=== PATIENT | male | born 1945 | race Caucasian/White ===

== ENCOUNTER 2016-05-29 21:38 | Inpatient (IN) | payer MEDICAID ==
[~2016-05-29] VITALS: Ht 170.2 cm; Wt 84.4 kg
[2016-05-29 22:01] LABS: BASOPHILS % (AUTO) 0.5 % (0.0-2.0); EOSINOPHILS # (AUTO) 0.4 /CMM (0.0-0.7); EOSINOPHILS % (AUTO) 3.9 % (0.0-6.0); HEMATOCRIT 37 % (39-51); HEMOGLOBIN 11.9 g/dL (13.5-17.5); LYMPHOCYTES % (AUTO) 22.3 % (20.0-44.0); MEAN CORPUSCULAR HEMOGLOBIN 27 PG (26.0-33.0); MEAN CORPUSCULAR HGB CONC 32 g/dl (31.0-36.0); MEAN CORPUSCULAR VOLUME 85 fL (80-96); MONOCYTES # (AUTO) 0.5 /CMM (0.1-1.30); MONOCYTES % (AUTO) 5.4 % (2.0-12.0); NEUTROPHILS # (AUTO) 6.1 /CMM (1.8-8.9); NEUTROPHILS % (AUTO) 67.9 % (43.0-81.0); PLATELET COUNT (AUTO) 219 /CMM (150-450); RDW COEFFICIENT OF VARIATION 15.3 (11.5-15.0); RED BLOOD CELL COUNT(AUTO) 4.38 MIL/uL (4.5-6.0)
[2016-05-29 22:19] LABS: ALBUMIN 3.2 g/dL (3.4-5.0); BILIRUBIN,DIRECT 0.1 mg/dL (0.0-0.2); BILIRUBIN,TOTAL 0.4 mg/dL (0.2-1.0); CREATININE 2.5 mg/dL (0.6-1.3); POTASSIUM 4.2 mmol/L (3.5-5.1); TOTAL PROTEIN, SERUM 7.4 g/dL (6.4-8.2)
[2016-05-29 22:22] LABS: TROPONIN I 0.025 ng/mL (0.00-0.056)
[2016-05-29 22:25] LABS: INR 1.02 (0.87-1.13); PROTHROMBIN TIME 10.9 SECS (9.5-12.7)
[2016-05-29] MEDS ORDERED: ALBUTEROL FS 2.5 MG/3 ML VIAL.NEB ONE (22:28)
[2016-05-29] MEDS ORDERED: ALBUTEROL FS 2.5 MG/0.5 ML VIAL.NEB NEB ONE (22:30)
[2016-05-29] MEDS ORDERED: IV NS 0.9% 1,000 ML BAG IV ONE (22:30)
[2016-05-29] MEDS ORDERED: IV NS 0.9% 1,000 ML ONE (22:42)
[2016-05-29] MEDS ORDERED: IV SET PRIMARY 1 EA INFUS.SET MC ONE ×2 (22:42→23:41)
[2016-05-29 23:08] LABS: APPEARANCE,URINE SL CLOUDY (CLEAR); BILIRUBIN,URINE NEGATIVE (NEGATIVE); BLOOD, URINE TRACE-INTA Ery/uL (NEGATIVE); COLOR,URINE YELLOW (YELLOW); KETONES,URINE NEGATIVE (NEGATIVE); LEUKOCYTE ESTERASE ,URINE NEGATIVE (NEGATIVE); NITRITE, URINE NEGATIVE (NEGATIVE); PH,URINE 5.5 (5.0-8.0); PROTEIN,URINE 1+ mg/dl (NEGATIVE); UGLUCOSE 3+ mg/dL (NEGATIVE); UROBILINOGEN,URINE 0.2 EU/dL (0.2)
[2016-05-29 23:23] LABS: ADD URINE CULTURE YES; BACTERIA,URINE 4+ /HPF (None Seen); RBC,URINE 0-5 /HPF (0-2); WBC,URINE 81-100 /HPF (0-3)
[2016-05-29 23:24] LABS: SQUAMOUS EPITHELIAL CELL,UR Moderate /HPF (None Seen)
[2016-05-29] MEDS ORDERED: CEFTRIAXONE 1GM BAG (ER ONLY) 1 GM/50 ML PIGGYBACK IV ONE (23:30)
[2016-05-29] MEDS ORDERED: CEFTRIAXONE 1GM BAG (ER ONLY) 50 ML IV ONE (23:41)
[2016-05-30] VITALS (7 sets, daily range): BP systolic 94–145; BP diastolic 60–78
[2016-05-30] MEDS ORDERED: TAMS-12 PO (00:02)
[2016-05-30] MEDS ORDERED: INSU100V7 SQ (00:02)
[2016-05-30] MEDS ORDERED: ISOS30TA6 PO (00:02)
[2016-05-30] MEDS ORDERED: FINA5TAB11 PO (00:02)
[2016-05-30] MEDS ORDERED: CARV25TA2 PO (00:02)
[2016-05-30] MEDS ORDERED: FURO-144 PO (00:02)
[2016-05-30] MEDS ORDERED: CALC0.253 PO (00:02)
[2016-05-30] MEDS ORDERED: ATOR80TA PO (00:02)
[2016-05-30] MEDS ORDERED: GABA-534 PO (00:02)
[2016-05-30] MEDS ORDERED: FERR325T41 PO (00:02)
[2016-05-30] MEDS ORDERED: PANT40TA2 PO (00:02)
[2016-05-30] MEDS ORDERED: TICA90TA PO (00:02)
[2016-05-30] MEDS ORDERED: ERGO500047 PO (00:02)
[2016-05-30] MEDS ORDERED: ACETAMINOPHEN 325 MG TABLET PO PRN (01:00)
[2016-05-30] MEDS ORDERED: CEFTRIAXONE 1 G in IV D5W 50 ML IV SCH (01:00)
[2016-05-30] MEDS ORDERED: ZOLPIDEM TARTRATE 5 MG TABLET PO PRN (01:00)
[2016-05-30] MEDS ORDERED: Z GUARD REMEDY 2 OZ OINT TP PRN (01:00)
[2016-05-30] MEDS ORDERED: HYDROCODONE/APAP 5/325MG 1 EACH TABLET PO PRN (01:00)
[2016-05-30] MEDS ORDERED: MAGNESIUM HYDROXIDE 30 ML UDC PO PRN (01:00)
[2016-05-30] MEDS ORDERED: MAG HYDROX/AL HYDROX/SIMETH 30 ML UDC PO PRN (01:00)
[2016-05-30] MEDS ORDERED: ONDANSETRON HCL/PF 4 MG/2 ML VIAL IVP PRN (01:00)
[2016-05-30] MEDS ORDERED: DEXTROSE 50%-WATER 50 ML DISP.SYRIN IV PRN (02:30)
[2016-05-30] MEDS: BLOOD SUGAR DIAGNOSTIC 1 EACH STRIP VI SCH ×5 (02:57→21:29)
[2016-05-30] MEDS: *INSULIN REGULAR(HUMULIN R)HUM 100 UNIT/ML VIAL SQ PRN ×2 (02:58→21:26)
[2016-05-30] MEDS: INSULIN REGULAR, HUMAN 100 UNIT/ML 3 ML VIAL SQ PRN ×3 (06:34→17:03)
[2016-05-30] MEDS ORDERED: PANTOPRAZOLE 40 MG TABLET.DR PO SCH (09:00)
[2016-05-30] MEDS: DOCUSATE SODIUM 100 MG CAPSULE PO SCH ×2 (09:17→16:58)
[2016-05-30] MEDS: FINASTERIDE (5 MG) 5 MG TABLET PO SCH (09:17)
[2016-05-30] MEDS: ISOSORBIDE MONONITRATE (30MG) 30 MG TAB.SR.24H PO SCH (09:17)
[2016-05-30] MEDS: FERROUS SULFATE (325 MG) 325 MG/TAB TABLET PO SCH ×2 (09:17→16:58)
[2016-05-30] MEDS: CARVEDILOL 12.5 MG TABLET PO SCH ×2 (09:17→21:24)
[2016-05-30] MEDS: CALCITRIOL 0.25 MCG CAPSULE PO SCH (09:17)
[2016-05-30] MEDS: FUROSEMIDE 40 MG/4 ML VIAL IV SCH (09:19)
[2016-05-30] MEDS: BRILINTA 90 MG PO SCH ×2 (10:58→16:59)
[2016-05-30] MEDS ORDERED: ERGOCALCIFEROL (VITAMIN D 2) 50,000 UNIT CAPSULE PO SCH (11:00)
[2016-05-30] MEDS: ALBUTEROL FS 2.5 MG/3 ML VIAL.NEB NEB PRN ×2 (12:22→18:03)
[2016-05-30] MEDS: ATORVASTATIN 40 MG TABLET PO SCH (17:00)
[2016-05-30] MEDS: TAMSULOSIN 0.4 MG CAP.SR.24H PO SCH (17:00)
[2016-05-30] MEDS: GABAPENTIN 300 MG CAPSULE PO SCH (17:00)
[2016-05-30] MEDS ORDERED: BRILINTA 90 MG PO SCH (17:00)
[2016-05-30] MEDS: INSULIN DETEMIR 100 UNIT/ML CARTRIDGE SQ SCH (21:25)
[2016-05-30] MEDS ORDERED: IV SET PRIMARY PUMP SET 1 EA INFUS.SET MC ONE (21:33)
[2016-05-30] MEDS: CEFTRIAXONE 1 G in IV D5W 50 ML IV SCH (22:38)
[2016-05-31] VITALS (7 sets, daily range): BP systolic 126–135; BP diastolic 71–73
[2016-05-31] MEDS: ALBUTEROL FS 2.5 MG/3 ML VIAL.NEB NEB PRN (01:21)
[2016-05-31] MEDS: BLOOD SUGAR DIAGNOSTIC 1 EACH STRIP VI SCH ×4 (06:50→21:10)
[2016-05-31 07:27] LABS: BASOPHILS % (AUTO) 0.3 % (0.0-2.0); EOSINOPHILS # (AUTO) 0.4 /CMM (0.0-0.7); EOSINOPHILS % (AUTO) 4.1 % (0.0-6.0); HEMATOCRIT 33 % (39-51); HEMOGLOBIN 10.7 g/dL (13.5-17.5); LYMPHOCYTES % (AUTO) 19.5 % (20.0-44.0); MEAN CORPUSCULAR HEMOGLOBIN 27 PG (26.0-33.0); MEAN CORPUSCULAR HGB CONC 32 g/dl (31.0-36.0); MEAN CORPUSCULAR VOLUME 84 fL (80-96); MONOCYTES # (AUTO) 0.6 /CMM (0.1-1.30); MONOCYTES % (AUTO) 6.2 % (2.0-12.0); NEUTROPHILS % (AUTO) 69.9 % (43.0-81.0); PLATELET COUNT (AUTO) 204 /CMM (150-450); RDW COEFFICIENT OF VARIATION 15.1 (11.5-15.0); RED BLOOD CELL COUNT(AUTO) 3.93 MIL/uL (4.5-6.0)
[2016-05-31 07:39] LABS: CALCIUM, SERUM 8.5 mg/dL (8.5-10.1); CREATININE 2.2 mg/dL (0.6-1.3); PHOSPHORUS 3.5 mg/dL (2.5-4.9); POTASSIUM 3.6 mmol/L (3.5-5.1)
[2016-05-31] MEDS: BRILINTA 90 MG PO SCH ×2 (08:29→17:14)
[2016-05-31] MEDS: PANTOPRAZOLE 40 MG TABLET.DR PO SCH (08:30)
[2016-05-31] MEDS: FINASTERIDE (5 MG) 5 MG TABLET PO SCH (08:30)
[2016-05-31] MEDS: CALCITRIOL 0.25 MCG CAPSULE PO SCH (08:30)
[2016-05-31] MEDS: ISOSORBIDE MONONITRATE (30MG) 30 MG TAB.SR.24H PO SCH (08:31)
[2016-05-31] MEDS: CARVEDILOL 12.5 MG TABLET PO SCH ×2 (08:31→21:09)
[2016-05-31] MEDS: FERROUS SULFATE (325 MG) 325 MG/TAB TABLET PO SCH ×2 (08:31→17:15)
[2016-05-31] MEDS: DOCUSATE SODIUM 100 MG CAPSULE PO SCH ×2 (08:32→17:15)
[2016-05-31] MEDS: FUROSEMIDE 40 MG/4 ML VIAL IV SCH (08:32)
[2016-05-31] MEDS: INSULIN REGULAR, HUMAN 100 UNIT/ML 3 ML VIAL SQ PRN ×2 (12:39→17:19)
[2016-05-31] MEDS: TAMSULOSIN 0.4 MG CAP.SR.24H PO SCH (17:15)
[2016-05-31] MEDS: GABAPENTIN 300 MG CAPSULE PO SCH (17:15)
[2016-05-31] MEDS: ATORVASTATIN 40 MG TABLET PO SCH (17:15)
[2016-05-31] MEDS: *INSULIN REGULAR(HUMULIN R)HUM 100 UNIT/ML VIAL SQ PRN (21:11)
[2016-05-31] MEDS: INSULIN DETEMIR 100 UNIT/ML CARTRIDGE SQ SCH (21:11)
[2016-05-31] MEDS: CEFTRIAXONE 1 G in IV D5W 50 ML IV SCH (22:29)
[2016-06-01] VITALS: BP 136/75
[2016-06-01 04:00] VITALS: BP 128/72
[2016-06-01] MEDS: BLOOD SUGAR DIAGNOSTIC 1 EACH STRIP VI SCH ×4 (06:44→21:33)
[2016-06-01 07:52] LABS: BASOPHILS % (AUTO) 0.4 % (0.0-2.0); EOSINOPHILS # (AUTO) 0.3 /CMM (0.0-0.7); EOSINOPHILS % (AUTO) 3.7 % (0.0-6.0); HEMATOCRIT 33 % (39-51); HEMOGLOBIN 10.7 g/dL (13.5-17.5); LYMPHOCYTES # (AUTO) 1.8 /CMM (0.8-4.8); LYMPHOCYTES % (AUTO) 20.4 % (20.0-44.0); MEAN CORPUSCULAR HEMOGLOBIN 27 PG (26.0-33.0); MEAN CORPUSCULAR HGB CONC 32 g/dl (31.0-36.0); MEAN CORPUSCULAR VOLUME 84 fL (80-96); MONOCYTES # (AUTO) 0.7 /CMM (0.1-1.30); MONOCYTES % (AUTO) 8.2 % (2.0-12.0); NEUTROPHILS % (AUTO) 67.3 % (43.0-81.0); PLATELET COUNT (AUTO) 206 /CMM (150-450); RDW COEFFICIENT OF VARIATION 15.1 (11.5-15.0); RED BLOOD CELL COUNT(AUTO) 3.95 MIL/uL (4.5-6.0); WHITE BLOOD COUNT (AUTO) 8.9 K/uL (4.3-11.0)
[2016-06-01 07:55] LABS: CALCIUM, SERUM 8.3 mg/dL (8.5-10.1); CREATININE 2.2 mg/dL (0.6-1.3); PHOSPHORUS 3.5 mg/dL (2.5-4.9); POTASSIUM 3.4 mmol/L (3.5-5.1)
[2016-06-01 08:00] VITALS: BP 140/75
[2016-06-01] MEDS: ISOSORBIDE MONONITRATE (30MG) 30 MG TAB.SR.24H PO SCH (08:48)
[2016-06-01] MEDS: FINASTERIDE (5 MG) 5 MG TABLET PO SCH (08:48)
[2016-06-01] MEDS: DOCUSATE SODIUM 100 MG CAPSULE PO SCH ×2 (08:48→17:27)
[2016-06-01] MEDS: CARVEDILOL 12.5 MG TABLET PO SCH ×2 (08:48→21:20)
[2016-06-01] MEDS: FERROUS SULFATE (325 MG) 325 MG/TAB TABLET PO SCH ×2 (08:48→17:27)
[2016-06-01] MEDS: CALCITRIOL 0.25 MCG CAPSULE PO SCH (08:48)
[2016-06-01] MEDS: FUROSEMIDE 40 MG/4 ML VIAL IV SCH (08:49)
[2016-06-01] MEDS: PANTOPRAZOLE 40 MG TABLET.DR PO SCH (08:49)
[2016-06-01] MEDS: BRILINTA 90 MG PO SCH ×2 (08:55→17:27)
[2016-06-01 12:00] VITALS: BP_SYST 135; BP_SYST 90; BP_DIAS 45; BP_DIAS 65
[2016-06-01] MEDS ORDERED: POTASSIUM CHLORIDE 10 MEQ TABLET.SA PO ONE (12:00)
[2016-06-01 16:00] VITALS: BP 147/73
[2016-06-01] MEDS: ATORVASTATIN 40 MG TABLET PO SCH (17:26)
[2016-06-01] MEDS: TAMSULOSIN 0.4 MG CAP.SR.24H PO SCH (17:26)
[2016-06-01] MEDS: GABAPENTIN 300 MG CAPSULE PO SCH (17:27)
[2016-06-01] MEDS: INSULIN REGULAR, HUMAN 100 UNIT/ML 3 ML VIAL SQ PRN (17:31)
[2016-06-01 20:00] VITALS: BP 133/63
[2016-06-01] MEDS: INSULIN DETEMIR 100 UNIT/ML CARTRIDGE SQ SCH (21:33)
[2016-06-01] MEDS: *INSULIN REGULAR(HUMULIN R)HUM 100 UNIT/ML VIAL SQ PRN (21:34)
[2016-06-01] MEDS: CEFTRIAXONE 1 G in IV D5W 50 ML IV SCH (22:14)
[2016-06-02] VITALS (7 sets, daily range): BP systolic 120–151; BP diastolic 68–78
[2016-06-02 07:35] LABS: CALCIUM, SERUM 8.6 mg/dL (8.5-10.1); CREATININE 2.3 mg/dL (0.6-1.3); POTASSIUM 3.6 mmol/L (3.5-5.1)
[2016-06-02] MEDS: CARVEDILOL 12.5 MG TABLET PO SCH ×2 (08:22→21:48)
[2016-06-02] MEDS: PANTOPRAZOLE 40 MG TABLET.DR PO SCH (08:22)
[2016-06-02] MEDS: CALCITRIOL 0.25 MCG CAPSULE PO SCH (08:22)
[2016-06-02] MEDS: FINASTERIDE (5 MG) 5 MG TABLET PO SCH (08:22)
[2016-06-02] MEDS: ISOSORBIDE MONONITRATE (30MG) 30 MG TAB.SR.24H PO SCH (08:23)
[2016-06-02] MEDS: FUROSEMIDE 40 MG/4 ML VIAL IV SCH (08:23)
[2016-06-02] MEDS: BLOOD SUGAR DIAGNOSTIC 1 EACH STRIP VI SCH ×4 (08:23→21:50)
[2016-06-02] MEDS: INSULIN REGULAR, HUMAN 100 UNIT/ML 3 ML VIAL SQ PRN ×4 (08:26→21:51)
[2016-06-02] MEDS: BRILINTA 90 MG PO SCH ×2 (08:26→17:25)
[2016-06-02] MEDS: FERROUS SULFATE (325 MG) 325 MG/TAB TABLET PO SCH ×2 (08:26→17:26)
[2016-06-02] MEDS: DOCUSATE SODIUM 100 MG CAPSULE PO SCH ×2 (08:26→17:26)
[2016-06-02] MEDS: INSULIN ASPART NOVOLOG 100 UNIT/ML CARTRIDGE SQ SCH (17:24)
[2016-06-02] MEDS: ATORVASTATIN 40 MG TABLET PO SCH (17:25)
[2016-06-02] MEDS: GABAPENTIN 300 MG CAPSULE PO SCH (17:25)
[2016-06-02] MEDS: TAMSULOSIN 0.4 MG CAP.SR.24H PO SCH (17:26)
[2016-06-02] MEDS ORDERED: INSULIN DETEMIR 100 UNIT/ML CARTRIDGE SQ SCH ×2 (22:00)
[2016-06-03] VITALS: BP 124/71
[2016-06-03] MEDS: CEFTRIAXONE 1 G in IV D5W 50 ML IV SCH (00:12)
[2016-06-03 04:00] VITALS: BP 119/67
[2016-06-03 04:47] VITALS: BP 119/67
[2016-06-03] MEDS: PANTOPRAZOLE 40 MG TABLET.DR PO SCH (06:32)
[2016-06-03] MEDS: BLOOD SUGAR DIAGNOSTIC 1 EACH STRIP VI SCH ×2 (06:32→12:14)
[2016-06-03] MEDS: INSULIN ASPART NOVOLOG 100 UNIT/ML CARTRIDGE SQ SCH ×2 (06:32→12:18)
[2016-06-03 07:26] LABS: BASOPHILS % (AUTO) 0.5 % (0.0-2.0); EOSINOPHILS # (AUTO) 0.4 /CMM (0.0-0.7); EOSINOPHILS % (AUTO) 4.1 % (0.0-6.0); HEMATOCRIT 34 % (39-51); HEMOGLOBIN 11.1 g/dL (13.5-17.5); LYMPHOCYTES # (AUTO) 2.1 /CMM (0.8-4.8); LYMPHOCYTES % (AUTO) 22.4 % (20.0-44.0); MEAN CORPUSCULAR HEMOGLOBIN 27 PG (26.0-33.0); MEAN CORPUSCULAR HGB CONC 33 g/dl (31.0-36.0); MEAN CORPUSCULAR VOLUME 84 fL (80-96); MONOCYTES # (AUTO) 0.6 /CMM (0.1-1.30); MONOCYTES % (AUTO) 6.7 % (2.0-12.0); NEUTROPHILS # (AUTO) 6.1 /CMM (1.8-8.9); NEUTROPHILS % (AUTO) 66.3 % (43.0-81.0); PLATELET COUNT (AUTO) 216 /CMM (150-450); RDW COEFFICIENT OF VARIATION 15.9 (11.5-15.0); RED BLOOD CELL COUNT(AUTO) 4.07 MIL/uL (4.5-6.0); WHITE BLOOD COUNT (AUTO) 9.2 K/uL (4.3-11.0)
[2016-06-03 07:52] LABS: BILIRUBIN,TOTAL 0.4 mg/dL (0.2-1.0); CALCIUM, SERUM 8.7 mg/dL (8.5-10.1); CREATININE 2.2 mg/dL (0.6-1.3); MAGNESIUM 2.1 mg/dL (1.8-2.4); PHOSPHORUS 3.5 mg/dL (2.5-4.9); POTASSIUM 3.1 mmol/L (3.5-5.1); TOTAL PROTEIN, SERUM 6.7 g/dL (6.4-8.2)
[2016-06-03 08:00] VITALS: BP 164/81
[2016-06-03] MEDS: FERROUS SULFATE (325 MG) 325 MG/TAB TABLET PO SCH (09:00)
[2016-06-03] MEDS: ISOSORBIDE MONONITRATE (30MG) 30 MG TAB.SR.24H PO SCH (09:04)
[2016-06-03] MEDS: BRILINTA 90 MG PO SCH (09:04)
[2016-06-03] MEDS: FUROSEMIDE 40 MG/4 ML VIAL IV SCH (09:05)
[2016-06-03] MEDS: DOCUSATE SODIUM 100 MG CAPSULE PO SCH (09:05)
[2016-06-03 09:06] VITALS: BP 164/81
[2016-06-03] MEDS: CALCITRIOL 0.25 MCG CAPSULE PO SCH (09:06)
[2016-06-03] MEDS: CARVEDILOL 12.5 MG TABLET PO SCH (09:06)
[2016-06-03] MEDS: FINASTERIDE (5 MG) 5 MG TABLET PO SCH (09:12)
[2016-06-03] MEDS ORDERED: POTASSIUM CHLORIDE 20 MEQ TAB.PRT.SR PO ONE (10:00)
[2016-06-03] MEDS: INSULIN REGULAR, HUMAN 100 UNIT/ML 3 ML VIAL SQ PRN (12:22)
[2016-06-03] MEDS ORDERED: INSU100V7 SQ (13:26)
[2016-06-03] MEDS ORDERED: FURO-144 PO (13:26)
[2016-06-03] MEDS ORDERED: INSU100C10 SQ (13:26)
== END 2016-06-03 12:30 | disposition left against medical advice (07) | DRG 194 ==
LOC: ER 21:39 → TELE-TD 05-30 00:52 → TELE1 05-31 11:42 → MEDSG1 06-02 13:57
PROVIDERS: ADMIT Family Medicine; ATTEND Family Medicine
DX: I13.0 Hypertensive heart and chronic kidney disease with heart failure and stage 1 through stage 4 chronic kidney disease, or unspecified chronic kidney disease (principal); N17.0 Acute kidney failure with tubular necrosis; G93.41 Metabolic encephalopathy; E46 Unspecified protein-calorie malnutrition; E87.70 Fluid overload, unspecified; E11.22 Type 2 diabetes mellitus with diabetic chronic kidney disease; N10 Acute pyelonephritis; N18.3 Chronic kidney disease, stage 3 (moderate); Z95.5 Presence of coronary angioplasty implant and graft; I25.10 Atherosclerotic heart disease of native coronary artery without angina pectoris; E78.5 Hyperlipidemia, unspecified; E66.9 Obesity, unspecified; D63.8 Anemia in other chronic diseases classified elsewhere; E11.65 Type 2 diabetes mellitus with hyperglycemia; K21.9 Gastro-esophageal reflux disease without esophagitis; N40.1 Benign prostatic hyperplasia with lower urinary tract symptoms; B96.89 Other specified bacterial agents as the cause of diseases classified elsewhere; K29.70 Gastritis, unspecified, without bleeding; I50.33 Acute on chronic diastolic (congestive) heart failure
CPT/HCPCS: 36415; 71010-TC; 80048-TC; 80053-TC; 80061-TC; 80076-TC; 81000-TC; 82962-TC; 83735-TC; 83880; 84100-TC; 84484-TC; 85025-TC; 85730-TC; 87040-TC; 87081-TC; 87086-TC; 87186-TC; 94799-TC; A4606; J0696; J1815; J1940; J7030; J7060; Z7610

== ENCOUNTER 2016-08-31 17:00 | Inpatient (IN) | payer MEDICAID ==
[~2016-08-31] VITALS: Ht 167.6 cm; Wt 85.7 kg
[~2016-08-31 17:00] MED LIST: ATOR80TA PO; CALC0.253 PO; CARV25TA2 PO; ERGO500047 PO; FERR325T41 PO; FINA5TAB11 PO; FURO-144 PO; GABA-534 PO; INSU100C10 SQ; INSU100V7 SQ; ISOS30TA6 PO; PANT40TA2 PO; TAMS-12 PO; TICA90TA PO
--- NOTE | 2016-08-31 17:10 | NUR ---
PT TO ED ROOM 07. BIB RA 88,LOW O2 SAT/SOB AT HOME, CPAP ENROUTE. A/A/O. SIDE RAISL UP. HOB ELEVATED. CONNECTED TO MONITOR. PLACED ON BIPAP BY RT 40%, 12. SEEN AND EVALUATED BY ED PROVIDER.
--- NOTE | 2016-08-31 17:15 | NUR ---
RT PT BROUGHT INTO ER BY PARAMEDICS, PT HAS INCREASED WOB AND SOB. PT IS AWAKE AND ALERT. PT PLACED ON BIPAP PER DR. BYRD, BIPAP SETTINGS NOTED. BIPAP ALARMS ARE SET AND AUDIBLE WITH BVM BY BEDSIDE. BIPAP IS PLUGGED INTO RED OUTLET. WILL CONTINUE TO MONITOR. Addendum: 08/31/16 at 1729 by BENJI ENRIQUEZ RT Amended: Links added.
[2016-08-31 17:17] LABS: BASOPHILS # (AUTO) 0.1 /CMM (0.0-0.2); BASOPHILS % (AUTO) 0.7 % (0.0-2.0); EOSINOPHILS # (AUTO) 0.4 /CMM (0.0-0.7); EOSINOPHILS % (AUTO) 5.2 % (0.0-6.0); HEMATOCRIT 37 % (39-51); HEMOGLOBIN 11.8 g/dL (13.5-17.5); LYMPHOCYTES # (AUTO) 1.6 /CMM (0.8-4.8); LYMPHOCYTES % (AUTO) 20.4 % (20.0-44.0); MEAN CORPUSCULAR HEMOGLOBIN 27 PG (26.0-33.0); MEAN CORPUSCULAR HGB CONC 32 g/dl (31.0-36.0); MEAN CORPUSCULAR VOLUME 84 fL (80-96); MONOCYTES # (AUTO) 0.5 /CMM (0.1-1.30); MONOCYTES % (AUTO) 6.9 % (2.0-12.0); NEUTROPHILS # (AUTO) 5.3 /CMM (1.8-8.9); NEUTROPHILS % (AUTO) 66.8 % (43.0-81.0); PLATELET COUNT (AUTO) 236 /CMM (150-450); RDW COEFFICIENT OF VARIATION 15.3 (11.5-15.0); RED BLOOD CELL COUNT(AUTO) 4.42 MIL/uL (4.5-6.0); WHITE BLOOD COUNT (AUTO) 7.9 K/uL (4.3-11.0)
[2016-08-31] MEDS ORDERED: FUROSEMIDE 40 MG/4 ML VIAL ONE (17:24)
[2016-08-31] MEDS ORDERED: MORPHINE SULFATE INJ 2 MG/ML DISP.SYRIN ONE (17:24)
[2016-08-31] MEDS ORDERED: ONDANSETRON HCL/PF 4 MG/2 ML VIAL ONE (17:25)
[2016-08-31] MEDS ORDERED: NTG 50 MG/D5W250 ML BOTTL 250 ML IV ONE ×2 (17:25→17:30)
[2016-08-31] MEDS ORDERED: IV SET PRIMARY PUMP SET 1 EA INFUS.SET MC ONE ×2 (17:25→19:55)
[2016-08-31 17:28] LABS: CALCIUM, SERUM 8.8 mg/dL (8.5-10.1); CARBON DIOXIDE 27 mmol/L (21-32); CHLORIDE 104 mmol/L (98-107); CREATININE 2.3 mg/dL (0.6-1.3); GLUCOSE 207 mg/dL (74-106); POTASSIUM 3.6 mmol/L (3.5-5.1); SODIUM SERUM 140 mmol/L (136-145); UREA NITROGEN, BLOOD 44 mg/dL (7-18)
[2016-08-31] MEDS ORDERED: FUROSEMIDE 40 MG/4 ML VIAL IV ONE (17:30)
[2016-08-31] MEDS ORDERED: ONDANSETRON HCL/PF 4 MG/2 ML VIAL IV ONE (17:30)
[2016-08-31] MEDS ORDERED: MORPHINE SULFATE INJ 2 MG/ML DISP.SYRIN IV ONE (17:30)
[2016-08-31 17:31] LABS: INR 1.07 (0.87-1.13); PROTHROMBIN TIME 11.1 SECS (9.5-12.7)
--- NOTE | 2016-08-31 17:38 | NUR ---
NITROP GTT TITRATED DOWN TO 50MCG/HR
[2016-08-31 17:39] LABS: ALANINE AMINOTRANSFERASE 13 U/L (12-78); ALBUMIN 3.2 g/dL (3.4-5.0); ALKALINE PHOSPHATASE 68 U/L (46-116); ASPARTATE AMINOTRANSFERASE 10 U/L (15-37); B-TYPE NATRIURETIC PEPTIDE 5911 PG/ML (0-125); BILIRUBIN,DIRECT 0.1 mg/dL (0.0-0.2); BILIRUBIN,TOTAL 0.4 mg/dL (0.2-1.0); TOTAL PROTEIN, SERUM 7.8 g/dL (6.4-8.2)
[2016-08-31 17:41] LABS: TROPONIN I 0.022 ng/mL (0.00-0.056)
--- NOTE | 2016-08-31 17:58 | NUR ---
CALLED [facility] LPN RN HOSPICE DOCTOR WAS PAGED.
[2016-08-31 18:00] LABS: ABG BASE EXCESS -0.1 mmol/L; ABG OXYGEN SATURATION 95.4 % (92.0-98.5); ABG PCO2 39.2 mmHg (35.0-45.0); ABG PH 7.411 (7.350-7.450); ABG PO2 83.6 mmHg (75.0-100.0); AaDO2 156.5 mmHg; COHb 0.6 % (0.5-1.5); MetHb 0.4 % (0.0-1.5); O2Hb 94.4 % (94.0-97.0); SITE, ABG Right Radial; VENT MODE, BG BIPAP 15/5
[2016-08-31] MEDS ORDERED: INSU3INS6 SQ (18:04)
[2016-08-31] MEDS ORDERED: FURO-144 PO (18:04)
--- NOTE | 2016-08-31 18:14 | NUR ---
CALLED [facility] AUCTIONEER ART DOCTOR WAS REPAGED.
--- NOTE | 2016-08-31 18:44 | NUR ---
REPORT GIVEN TO September SONYA/ICU
[2016-08-31] MEDS ORDERED: DEXTROSE 50%-WATER 50 ML DISP.SYRIN IV PRN (19:00)
[2016-08-31] MEDS ORDERED: BUMETANIDE INJ 6 MG in IV NS 0.9% 36 ML IV ONE (19:00)
[2016-08-31] MEDS ORDERED: ACETAMINOPHEN 325 MG TABLET PO PRN (19:00)
[2016-08-31] MEDS ORDERED: Z GUARD REMEDY 2 OZ OINT TP PRN (19:00)
[2016-08-31] MEDS ORDERED: ONDANSETRON HCL/PF 4 MG/2 ML VIAL IVP PRN (19:00)
[2016-08-31] MEDS ORDERED: MORPHINE SULFATE INJ 2 MG/ML DISP.SYRIN IV PRN (19:00)
--- NOTE | 2016-08-31 19:30 | NUR ---
RN INITIAL NOTE RECEIVED PT IN NO ACUTE DISTRESS. PT IS A/O X 4 AND ABLE TO MAKE NEEDS KNOWN. PT HAS FAMILY AT BEDSIDE. PT IS ON NON REBREATHER MASK @ 15LPM AND TOLERATING WELL WITH O2 SAT @ 100%. PT IS NOT C/O ANY SOB, DIFFICULTY BREATHING OR PAIN AT THIS TIME. PT IS NOT C/O ANY CHEST PAIN. PT HAS RAC 20G IV THAT IS CLEAN DRY INTACT AND PATENT WITH NITRO DRIP @ 50 ML/HR. BED IN LOW LOCK POSITION [facility] RAILS UP X 2. CALL LIGHT WITHIN REACH AND ALL SAFETY MEASURES ENSURED AND CARRIED OUT. WILL CONTINUE TO MONITOR PT.
--- NOTE | 2016-08-31 19:45 | NUR ---
RN NOTE RECEIVED ORDERS FROM MD TO D/C NITRO DRIP AND DOWNGRADE PT TO SONYA STATUS.
[2016-08-31] MEDS ORDERED: SECONDARY IV SET 1 EA INFUS.SET MC ONE (19:55)
[2016-08-31] MEDS ORDERED: IV NS 0.9% 250 ML IV ONE (19:55)
[2016-08-31 20:00] VITALS: BP 152/83
[2016-08-31] MEDS: TICAGRELOR 90 MG TABLET PO SCH (20:21)
[2016-08-31] MEDS: BLOOD SUGAR DIAGNOSTIC 1 EACH STRIP IN SCH (21:39)
[2016-08-31] MEDS: DOCUSATE SODIUM 100 MG CAPSULE PO SCH (21:41)
[2016-08-31] MEDS: CARVEDILOL 12.5 MG TABLET PO SCH (21:42)
[2016-08-31] MEDS: TAMSULOSIN 0.4 MG CAP.SR.24H PO SCH (21:42)
[2016-08-31] MEDS: GABAPENTIN 300 MG CAPSULE PO SCH (21:43)
[2016-08-31] MEDS: ATORVASTATIN 40 MG TABLET PO SCH (21:43)
[2016-08-31] MEDS: INSULIN DETEMIR 100 UNIT/ML CARTRIDGE SQ SCH (21:45)
[2016-08-31] MEDS: INSULIN REGULAR, HUMAN 100 UNIT/ML 3 ML VIAL SQ PRN (21:56)
[2016-09-01] VITALS (7 sets, daily range): BP systolic 122–149; BP diastolic 59–79
[2016-09-01] MEDS: BLOOD SUGAR DIAGNOSTIC 1 EACH STRIP IN SCH ×4 (06:48→22:03)
[2016-09-01] MEDS: INSULIN REGULAR, HUMAN 100 UNIT/ML 3 ML VIAL SQ PRN ×4 (06:57→22:05)
[2016-09-01] MEDS: PANTOPRAZOLE 40 MG TABLET.DR PO SCH (06:58)
[2016-09-01 07:01] LABS: BASOPHILS % (AUTO) 0.5 % (0.0-2.0); EOSINOPHILS # (AUTO) 0.4 /CMM (0.0-0.7); EOSINOPHILS % (AUTO) 4.8 % (0.0-6.0); HEMATOCRIT 33 % (39-51); HEMOGLOBIN 10.9 g/dL (13.5-17.5); LYMPHOCYTES % (AUTO) 22.9 % (20.0-44.0); MEAN CORPUSCULAR HEMOGLOBIN 27 PG (26.0-33.0); MEAN CORPUSCULAR HGB CONC 33 g/dl (31.0-36.0); MEAN CORPUSCULAR VOLUME 84 fL (80-96); MONOCYTES # (AUTO) 0.7 /CMM (0.1-1.30); MONOCYTES % (AUTO) 7.4 % (2.0-12.0); NEUTROPHILS # (AUTO) 5.7 /CMM (1.8-8.9); NEUTROPHILS % (AUTO) 64.4 % (43.0-81.0); PLATELET COUNT (AUTO) 212 /CMM (150-450); RDW COEFFICIENT OF VARIATION 15.9 (11.5-15.0); RED BLOOD CELL COUNT(AUTO) 3.99 MIL/uL (4.5-6.0); WHITE BLOOD COUNT (AUTO) 8.9 K/uL (4.3-11.0)
--- NOTE | 2016-09-01 07:15 | NUR ---
SONYA RN NOTES RECEIVED PATIENT AOX4 , NOT IN ACUTE DISTRESS , DENIES CHEST PAIN AND DISCOMFORT AT THIS TIME , CHANGE NON REBREATHER MASK TO NC 2LPM WITH SPO2 OF 95% SR 62 WITH BBB ON TELE MONITOR , CONDOM CATHETER DRAINING WELL VIA GRAVITY WITH CLEAR YELLOW URINE , IV OF R AC AND L FA # 20 PATENT AND INTACT SL , ALL NEEDS ATTENDED , BED ON LOW AND LOCKED POSITION , SIDE RAILS X2 CALL LIGHT WITHIN REACH , HOB @ 45 , WILL CONTINUE TO MONITOR
--- NOTE | 2016-09-01 07:17 | NUR ---
RN CLOSING NOTE PT REMAINS IN NO ACUTE DISTRESS IN BED. PT DID NOT HAVE ANY SIGNIFICANT CHANGE IN CONDITION DURING SHIFT. ALL NEEDS MET ALL ORDERS CARRIED OUT. WILL ENDORSE REPORT TO AM RN FOR CONTINUITY OF CARE.
[2016-09-01 07:22] LABS: ALANINE AMINOTRANSFERASE 15 U/L (12-78); ALKALINE PHOSPHATASE 67 U/L (46-116); ASPARTATE AMINOTRANSFERASE 13 U/L (15-37); BILIRUBIN,TOTAL 0.5 mg/dL (0.2-1.0); CALCIUM, SERUM 8.4 mg/dL (8.5-10.1); CARBON DIOXIDE 31 mmol/L (21-32); CHLORIDE 104 mmol/L (98-107); CREATININE 2.1 mg/dL (0.6-1.3); GLUCOSE 151 mg/dL (74-106); MAGNESIUM 1.7 mg/dL (1.8-2.4); PHOSPHORUS 4.1 mg/dL (2.5-4.9); POTASSIUM 3.3 mmol/L (3.5-5.1); SODIUM SERUM 142 mmol/L (136-145); TOTAL PROTEIN, SERUM 7.2 g/dL (6.4-8.2); UREA NITROGEN, BLOOD 40 mg/dL (7-18)
[2016-09-01] MEDS ORDERED: PANTOPRAZOLE 40 MG TABLET.DR PO SCH (07:30)
[2016-09-01 07:49] LABS: APPEARANCE,URINE CLEAR (CLEAR); BILIRUBIN,URINE NEGATIVE (NEGATIVE); BLOOD, URINE TRACE-INTA Ery/uL (NEGATIVE); KETONES,URINE NEGATIVE (NEGATIVE); LEUKOCYTE ESTERASE ,URINE NEGATIVE (NEGATIVE); NITRITE, URINE NEGATIVE (NEGATIVE); PH,URINE 5.5 (5.0-8.0); PROTEIN,URINE NEGATIVE (NEGATIVE); UGLUCOSE TRACE mg/dL (NEGATIVE); UROBILINOGEN,URINE 0.2 EU/dL (0.2)
[2016-09-01 07:50] LABS: COLOR,URINE Light yellow (YELLOW)
[2016-09-01 07:51] LABS: BACTERIA,URINE None seen /HPF (None Seen); SQUAMOUS EPITHELIAL CELL,UR 0-2 /HPF (None Seen); WBC,URINE 0-2 /HPF (0-3)
[2016-09-01 07:53] LABS: CHOLESTEROL 169 mg/dL (<200); HDL CHOLESTEROL 25 mg/dL (40-60); LDL 114 mg/dL (0-99); THYROID STIMULATING HORMONE 3.765 uIU/mL (0.358-3.74); TRIGLYCERIDES 90 mg/dL (30-150)
[2016-09-01] MEDS: FINASTERIDE (5 MG) 5 MG TABLET PO SCH (08:25)
[2016-09-01] MEDS: TICAGRELOR 90 MG TABLET PO SCH ×2 (08:25→17:55)
[2016-09-01] MEDS: CARVEDILOL 12.5 MG TABLET PO SCH ×2 (08:25→20:40)
[2016-09-01] MEDS: CALCITRIOL 0.25 MCG CAPSULE PO SCH (08:25)
[2016-09-01] MEDS: ISOSORBIDE MONONITRATE (30MG) 30 MG TAB.SR.24H PO SCH (08:25)
[2016-09-01] MEDS: FERROUS SULFATE (325 MG) 325 MG/TAB TABLET PO SCH ×2 (08:25→17:55)
[2016-09-01] MEDS: DOCUSATE SODIUM 100 MG CAPSULE PO SCH ×2 (08:25→20:39)
--- NOTE | 2016-09-01 10:48 | NUR ---
RN NOTES REPORT GIVE CHETAN RAMIREZ FOR CONTINUITY OF CARE , PT IS STABLE AT THIS TIME
[2016-09-01] MEDS ORDERED: Magnesium 1GM/D5W 100ML PREMIX 100 ML IV SCH (11:30)
[2016-09-01] MEDS ORDERED: POTASSIUM CHLORIDE 20 MEQ POWDER PACKET PO ONE (12:30)
[2016-09-01] MEDS: GABAPENTIN 300 MG CAPSULE PO SCH (20:39)
[2016-09-01] MEDS: TAMSULOSIN 0.4 MG CAP.SR.24H PO SCH (20:39)
[2016-09-01] MEDS: ATORVASTATIN 40 MG TABLET PO SCH (20:39)
[2016-09-01] MEDS: INSULIN DETEMIR 100 UNIT/ML CARTRIDGE SQ SCH (22:05)
[2016-09-02 04:00] VITALS: BP 122/60
[2016-09-02 04:28] VITALS: BP 122/60
--- NOTE | 2016-09-02 06:21 | NUR ---
no significant changes overnight,vss,afebrile,denies any pain, refused bedbath this morning and prefers to sleep more.
[2016-09-02 06:54] LABS: ALANINE AMINOTRANSFERASE 14 U/L (12-78); ALBUMIN 2.8 g/dL (3.4-5.0); ALKALINE PHOSPHATASE 64 U/L (46-116); ASPARTATE AMINOTRANSFERASE 12 U/L (15-37); BILIRUBIN,TOTAL 0.5 mg/dL (0.2-1.0); CALCIUM, SERUM 8.2 mg/dL (8.5-10.1); CARBON DIOXIDE 33 mmol/L (21-32); CHLORIDE 107 mmol/L (98-107); CREATININE 2.2 mg/dL (0.6-1.3); GLUCOSE 68 mg/dL (74-106); MAGNESIUM 2.1 mg/dL (1.8-2.4); PHOSPHORUS 3.9 mg/dL (2.5-4.9); POTASSIUM 3.4 mmol/L (3.5-5.1); SODIUM SERUM 145 mmol/L (136-145); TOTAL PROTEIN, SERUM 6.9 g/dL (6.4-8.2); UREA NITROGEN, BLOOD 39 mg/dL (7-18)
--- NOTE | 2016-09-02 07:00 | NUR ---
RN INITIAL NOTE RECEIVED REPORT FROM TATY JIANG NURSE. PT A/O X4 95 %. NC 2 L. IV RAC# 20 LFA #20G FLUSHED PATENT AND INTACT PT MS WILL CONTINUE TO MONITOR. ALL SAFETY MEASURES IN PLACE.
[2016-09-02] MEDS: PANTOPRAZOLE 40 MG TABLET.DR PO SCH (07:34)
[2016-09-02] MEDS: BLOOD SUGAR DIAGNOSTIC 1 EACH STRIP IN SCH (07:34)
--- NOTE | 2016-09-02 07:46 | NUR ---
RN NOTE BS 64 FOOD TRAY WILL BE GIVEN. WILL CONTINUE TO MONITOR.
[2016-09-02] MEDS: DOCUSATE SODIUM 100 MG CAPSULE PO SCH (08:10)
[2016-09-02] MEDS: CALCITRIOL 0.25 MCG CAPSULE PO SCH (08:10)
[2016-09-02] MEDS: ISOSORBIDE MONONITRATE (30MG) 30 MG TAB.SR.24H PO SCH (08:10)
[2016-09-02] MEDS: FINASTERIDE (5 MG) 5 MG TABLET PO SCH (08:10)
[2016-09-02] MEDS: FERROUS SULFATE (325 MG) 325 MG/TAB TABLET PO SCH (08:10)
[2016-09-02 08:11] VITALS: BP 120/61
[2016-09-02] MEDS: CARVEDILOL 12.5 MG TABLET PO SCH (08:11)
[2016-09-02] MEDS: TICAGRELOR 90 MG TABLET PO SCH (08:15)
[2016-09-02 08:35] LABS: BASOPHILS % (AUTO) 0.4 % (0.0-2.0); EOSINOPHILS # (AUTO) 0.3 /CMM (0.0-0.7); HEMATOCRIT 33 % (39-51); HEMOGLOBIN 10.8 g/dL (13.5-17.5); LYMPHOCYTES # (AUTO) 1.8 /CMM (0.8-4.8); MEAN CORPUSCULAR HEMOGLOBIN 27 PG (26.0-33.0); MEAN CORPUSCULAR HGB CONC 33 g/dl (31.0-36.0); MEAN CORPUSCULAR VOLUME 84 fL (80-96); MONOCYTES # (AUTO) 0.6 /CMM (0.1-1.30); MONOCYTES % (AUTO) 6.7 % (2.0-12.0); NEUTROPHILS # (AUTO) 5.6 /CMM (1.8-8.9); NEUTROPHILS % (AUTO) 66.9 % (43.0-81.0); PLATELET COUNT (AUTO) 206 /CMM (150-450); RDW COEFFICIENT OF VARIATION 16.1 (11.5-15.0); RED BLOOD CELL COUNT(AUTO) 3.95 MIL/uL (4.5-6.0); WHITE BLOOD COUNT (AUTO) 8.3 K/uL (4.3-11.0)
[2016-09-02 09:34] LABS: CREATINE KINASE, TOTAL 38 U/L (39-308)
--- NOTE | 2016-09-02 11:02 | NUR ---
ADMISSIONS RN NOTE PT DC HOME VIA PRIVATE CAR WITH URI. PT WHEELED OUT BY JOHN SHIPLEY. ID AND IV BAND REMOVED. CHF EDUCATION DONE . PER PT HAS F/U APPT WITH PCP @ [facility]. EMPHASIZED IMPORTANCE OF KEEPING APPT WITH IN 1-2 WKS. @ BEDSIDE AGREED. CORE MEASURES DONE. ALL INSTRUCTIONS GIVEN ALL QUESTIONS ANSWERED. PT CLEAN AND DRY. ALL ORDERS AND MEDICATIONS CARRIED OUT. RX OF BRILINTA PICKED UP FROM PHARMACY AND RETURNED TO PT. BELONGINGS LIST SIGNED.
[2016-09-03 12:19] LABS: PTH, INTACT 118 pg/mL (15-65)
[2016-09-03 14:23] LABS: *SPE A/G RATIO 1.1 (0.7-1.7); *SPE ALBUMIN 3.3 g/dL (2.9-4.4); *SPE ALPHA-1-GLOBULIN 0.2 g/dL (0.0-0.4); *SPE ALPHA-2-GLOBULIN 0.9 g/dL (0.4-1.0); *SPE BETA GLOBULIN 0.9 g/dL (0.7-1.3); *SPE GLOBULIN, TOTAL 3.1 g/dL (2.2-3.9); *SPE M-SPIKE Not Observed g/dL (Not Observed); *SPE PROTEIN TOTAL 6.4 g/dL (6.0-8.5)
[2016-09-04] MEDS ORDERED: ERGOCALCIFEROL (VITAMIN D 2) 50,000 UNIT CAPSULE PO SCH (09:00)
== END 2016-09-02 11:16 | disposition home or self-care (01) | DRG 194 ==
LOC: ER 17:02 → ICUOV 17:55 → TELE-TD 19:40 → TELE1 09-01 13:36 → MEDSG1 09-01 15:29
PROVIDERS: ADMIT Nurse Practitioner Acute Care; ATTEND Nurse Practitioner Acute Care
DX: I13.0 Hypertensive heart and chronic kidney disease with heart failure and stage 1 through stage 4 chronic kidney disease, or unspecified chronic kidney disease (principal); N17.0 Acute kidney failure with tubular necrosis; J96.90 Respiratory failure, unspecified, unspecified whether with hypoxia or hypercapnia; I50.43 Acute on chronic combined systolic (congestive) and diastolic (congestive) heart failure; D63.8 Anemia in other chronic diseases classified elsewhere; E78.5 Hyperlipidemia, unspecified; I25.10 Atherosclerotic heart disease of native coronary artery without angina pectoris; J44.9 Chronic obstructive pulmonary disease, unspecified; K21.9 Gastro-esophageal reflux disease without esophagitis; N18.4 Chronic kidney disease, stage 4 (severe); Z87.440 Personal history of urinary (tract) infections; K29.70 Gastritis, unspecified, without bleeding; Z95.5 Presence of coronary angioplasty implant and graft; N40.1 Benign prostatic hyperplasia with lower urinary tract symptoms; N13.8 Other obstructive and reflux uropathy; I25.5 Ischemic cardiomyopathy; E11.22 Type 2 diabetes mellitus with diabetic chronic kidney disease; E11.51 Type 2 diabetes mellitus with diabetic peripheral angiopathy without gangrene; Z79.4 Long term (current) use of insulin; Z79.899 Other long term (current) drug therapy
CPT/HCPCS: 36415; 36600; 71010-TC; 76770-TC; 80048-TC; 80053-TC; 80061-TC; 80076-TC; 81000-TC; 82550-TC; 82962-TC; 83735-TC; 83880; 83970; 84100-TC; 84155; 84165; 84443-TC; 84484-TC; 85025-TC; 85730-TC; 93307-TC; A4216; A4349; A4606; J1815; J1940; J2270; J2405; J3475; J3490; J7050

== ENCOUNTER 2017-03-26 21:58 | Inpatient (IN) | payer MEDICAID ==
[~2017-03-26] VITALS: Ht 165.1 cm; Wt 75.7 kg
[~2017-03-26 21:58] MED LIST changes: +ERGO500040 PO; -ERGO500047 PO; +FERR-68 PO; -FERR325T41 PO; -INSU100C10 SQ; -INSU100V7 SQ; +INSU3INS6 SQ
--- NOTE | 2017-03-26 22:05 | NUR ---
To bed 1 bib paramedics c/o Sob sat 83% at home per ems pt report. pt aaox4 no acute distress noted, resp even and unlabored. place pt on cardiac monitoring, continuous pox, o2@4l/nc. per pt pt uses o2@4L/nc prn at home. sl 20g to LAC motor equipment captain. pending er md chirinos.
--- NOTE | 2017-03-26 22:16 | NUR ---
er md at bedside to eval pt with orders received with orders received.
[2017-03-26 23:24] LABS: BASOPHILS % (AUTO) 0.4 % (0.0-2.0); EOSINOPHILS # (AUTO) 0.2 /CMM (0.0-0.7); EOSINOPHILS % (AUTO) 1.9 % (0.0-6.0); HEMATOCRIT 32 % (39-51); HEMOGLOBIN 10.6 g/dL (13.5-17.5); LYMPHOCYTES # (AUTO) 1.2 /CMM (0.8-4.8); LYMPHOCYTES % (AUTO) 12.3 % (20.0-44.0); MEAN CORPUSCULAR HEMOGLOBIN 29 PG (26.0-33.0); MEAN CORPUSCULAR HGB CONC 34 g/dl (31.0-36.0); MEAN CORPUSCULAR VOLUME 87 fL (80-96); MONOCYTES # (AUTO) 0.3 /CMM (0.1-1.30); MONOCYTES % (AUTO) 3.4 % (2.0-12.0); PLATELET COUNT (AUTO) 202 /CMM (150-450); RDW COEFFICIENT OF VARIATION 17.9 (11.5-15.0); RED BLOOD CELL COUNT(AUTO) 3.63 MIL/uL (4.5-6.0); WHITE BLOOD COUNT (AUTO) 9.7 K/uL (4.3-11.0)
[2017-03-26 23:34] LABS: CALCIUM, SERUM 9.2 mg/dL (8.5-10.1); CARBON DIOXIDE 27 mmol/L (21-32); CHLORIDE 101 mmol/L (98-107); CREATININE 2.3 mg/dL (0.6-1.3); GLUCOSE 199 mg/dL (74-106); POTASSIUM 3.3 mmol/L (3.5-5.1); SODIUM SERUM 141 mmol/L (136-145); UREA NITROGEN, BLOOD 43 mg/dL (7-18)
[2017-03-26 23:39] LABS: INR 1.1 (0.87-1.13)
[2017-03-26 23:40] LABS: TROPONIN I 0.034 ng/mL (0.00-0.056)
[2017-03-26 23:47] LABS: ALANINE AMINOTRANSFERASE 19 U/L (12-78); ALBUMIN 3.8 g/dL (3.4-5.0); ALKALINE PHOSPHATASE 82 U/L (46-116); ASPARTATE AMINOTRANSFERASE 9 U/L (15-37); B-TYPE NATRIURETIC PEPTIDE 7336 PG/ML (0-125); BILIRUBIN,DIRECT 0.2 mg/dL (0.0-0.2); BILIRUBIN,TOTAL 0.7 mg/dL (0.2-1.0); TOTAL PROTEIN, SERUM 8.1 g/dL (6.4-8.2)
--- NOTE | 2017-03-27 00:09 | NUR ---
report called to telecom analyst juana. will transport pt via acls protocol. er md spoke to dr. carlene jaquez regarding pt admission.
[2017-03-27 00:30] VITALS: BP 153/78
--- NOTE | 2017-03-27 00:30 | NUR ---
LITHODUPLICATOR OPERATORBUS STARTER NOTES RECEIVED FROM ER THIS 71 Y.O.MALE ACCOMPANIED BY WITH CHIEF COMPLAINTS OF SOB X1 HOUR FLASK FITTER.ALERT,ORIENTED X3-4,BREATHING NON LABORED,O2 IN USED TO KEEP O2SAT ABOVE 90%.SALINE LOCK LEFT AC INTACT AND PATENT.WITH KNOWN HX OF RIGHT BIG TOE [id number] YRS AGO,AND VASCULAR SX 10 YRS AGO.NO SKIN ISSUES.BEDREST FOR NOW TO AVOID SOB.STRICT I/O EMPHASIZED.KEPT HOB ELEVATED TO PREVENT FURTHER SOB.WILLCONTINUE TO MONITOR STATUS.
[2017-03-27] MEDS ORDERED: POTASSIUM CHLORIDE 20 MEQ TAB.PRT.SR PO ONE ×2 (01:00→01:02)
[2017-03-27] MEDS ORDERED: *INSULIN REGULAR(HUMULIN R)HUM 100 UNIT/ML VIAL SQ PRN (01:00)
[2017-03-27] MEDS ORDERED: NITROGLYCERIN 0.4 MG/TAB BOTTLE SL PRN (01:00)
[2017-03-27] MEDS ORDERED: DEXTROSE 50%-WATER 50 ML DISP.SYRIN IV PRN (01:00)
[2017-03-27] MEDS ORDERED: ENOXAPARIN SODIUM 40 MG/0.4 ML DISP.SYRIN SQ SCH (01:00)
--- NOTE | 2017-03-27 01:07 | NUR ---
GRANT SPECIALIST NOTES K LEVEL 3.3,REPLACED WITH 40MEQ KCL ORDERED.
[2017-03-27] MEDS ORDERED: ENOXAPARIN SODIUM 40 MG/0.4 ML DISP.SYRIN SQ ONE (01:20)
--- NOTE | 2017-03-27 01:22 | NUR ---
WOOD FLOOR LAYER NOTES STARTED ON LOVENOX 40MG SQ GIVEN ON LEFT LOWER ABDOMEN..
--- NOTE | 2017-03-27 02:07 | NUR ---
GAS REGULATOR REPAIRER HELPER NOTES SR WITH INVERTED T WAVE ON TELE MONITOR,RATE -68.
[2017-03-27 04:00] VITALS: BP 118/68
--- NOTE | 2017-03-27 06:45 | NUR ---
COOLER TENDER NOTES FAIRLY RESTED,NO EPISODE OF SOB.O2 IN USED AT 4L TO KEEP O2 SAT ABOVE 92 %.KEPT ON SEMI FOWLERS POSITION FOR OPTIMUM OXYGENATION.IN NO ACUTE DISTRESS.WILL ENDORSE TO DAY NURSE FOR LOVE.
--- NOTE | 2017-03-27 07:30 | NUR ---
RN OPENING NOTES RECEIVED PATIENT RESTING COMFORTABLY IN BED. AOX4. DENIES PAIN. DENIES SOB AND CP. PATIENT ON TELE READING SR WITH INVERTED T WAVES. RESPIRATIONS APPEAR SLIGHTLY LABORED. WILL NOTIFIED MD. NO ACUTE DISTRESS. IV ACCESS IN THE LEFT AC 20 G PATENT AND INTACT. BED LOCKED IN THE LOWEST POSITION WITH SIDE RAIL UP X2. CALL LIGHT WITHIN REACH. WILL CONTINUE TO MONITOR, ASSESS AND EDUCATE PATIENT THROUGHOUT SHIFT.
[2017-03-27 08:00] VITALS: BP 124/67
[2017-03-27] MEDS ORDERED: FUROSEMIDE 40 MG/4 ML VIAL IV SCH (09:00)
[2017-03-27] MEDS: ISOSORBIDE MONONITRATE (30MG) 30 MG TAB.SR.24H PO SCH ×2 (09:00→09:26)
[2017-03-27] MEDS ORDERED: FUROSEMIDE 40 MG TABLET PO SCH (09:00)
[2017-03-27] MEDS: FERROUS SULFATE (325 MG) 325 MG/TAB TABLET PO SCH ×2 (09:26→18:06)
[2017-03-27] MEDS: CARVEDILOL 12.5 MG TABLET PO SCH ×2 (09:28→21:55)
[2017-03-27] MEDS: BLOOD SUGAR DIAGNOSTIC 1 EACH STRIP VI SCH ×4 (09:30→22:59)
[2017-03-27] MEDS: FINASTERIDE (5 MG) 5 MG TABLET PO SCH (09:30)
[2017-03-27] MEDS: CALCITRIOL 0.25 MCG CAPSULE PO SCH (09:30)
[2017-03-27] MEDS: PANTOPRAZOLE 40 MG TABLET.DR PO SCH (09:35)
[2017-03-27] MEDS: FUROSEMIDE 40 MG/4 ML VIAL IV SCH ×3 (09:35→18:06)
[2017-03-27] MEDS: POTASSIUM CHLORIDE 20 MEQ TAB.PRT.SR PO SCH ×2 (09:41→12:25)
[2017-03-27 10:18] LABS: THYROID STIMULATING HORMONE 3.054 uIU/mL (0.358-3.74)
[2017-03-27 10:19] LABS: MAGNESIUM 2.1 mg/dL (1.8-2.4)
[2017-03-27 10:20] LABS: PHOSPHORUS 3.8 mg/dL (2.5-4.9)
[2017-03-27 10:45] LABS: BASOPHILS % (AUTO) 0.4 % (0.0-2.0); EOSINOPHILS # (AUTO) 0.2 /CMM (0.0-0.7); EOSINOPHILS % (AUTO) 3.5 % (0.0-6.0); HEMATOCRIT 29 % (39-51); HEMOGLOBIN 9.9 g/dL (13.5-17.5); LYMPHOCYTES # (AUTO) 1.3 /CMM (0.8-4.8); MEAN CORPUSCULAR HEMOGLOBIN 30 PG (26.0-33.0); MEAN CORPUSCULAR HGB CONC 35 g/dl (31.0-36.0); MEAN CORPUSCULAR VOLUME 87 fL (80-96); MONOCYTES # (AUTO) 0.4 /CMM (0.1-1.30); MONOCYTES % (AUTO) 6.2 % (2.0-12.0); NEUTROPHILS % (AUTO) 71.9 % (43.0-81.0); PLATELET COUNT (AUTO) 182 /CMM (150-450); RDW COEFFICIENT OF VARIATION 17.4 (11.5-15.0); RED BLOOD CELL COUNT(AUTO) 3.31 MIL/uL (4.5-6.0)
[2017-03-27 10:47] LABS: CALCIUM, SERUM 8.8 mg/dL (8.5-10.1); CARBON DIOXIDE 28 mmol/L (21-32); CHLORIDE 104 mmol/L (98-107); CREATININE 2.3 mg/dL (0.6-1.3); GLUCOSE 172 mg/dL (74-106); POTASSIUM 3.8 mmol/L (3.5-5.1); SODIUM SERUM 143 mmol/L (136-145); UREA NITROGEN, BLOOD 41 mg/dL (7-18)
[2017-03-27 11:54] LABS: ABG BASE EXCESS 0.6 mmol/L; ABG OXYGEN SATURATION 97.3 % (92.0-98.5); ABG PH 7.401 (7.350-7.450); ABG PO2 105.9 mmHg (75.0-100.0); AaDO2 102.1 mmHg; COHb 0.3 % (0.5-1.5); MetHb 0.4 % (0.0-1.5); O2Hb 96.6 % (94.0-97.0); SITE, ABG Right Radial; VENT MODE, BG NASAL CANNULA
[2017-03-27] MEDS: ALBUTEROL FS 2.5 MG/0.5 ML VIAL.NEB NEB PRN ×2 (12:00→20:12)
[2017-03-27] MEDS: IPRATROPIUM NEB FS 0.5 MG/2.5 ML AMPUL.NEB NEB PRN ×2 (12:00→20:12)
[2017-03-27] MEDS: INSULIN REGULAR, HUMAN 100 UNIT/ML 3 ML VIAL SQ PRN ×2 (12:21→18:11)
--- NOTE | 2017-03-27 12:28 | NUR ---
RN NON ADMIN NOTES REQUESTED FOR PHARMACY TO RESET KDUR ORDER TO PULL FROM [facility]. PULLED AND ADMINISTERED.
[2017-03-27] MEDS: TICAGRELOR 90 MG PO SCH ×2 (12:38→18:06)
[2017-03-27] MEDS ORDERED: POTASSIUM CHLORIDE 20 MEQ TAB.PRT.SR PO SCH (13:00)
[2017-03-27 16:00] VITALS: BP 135/73
--- NOTE | 2017-03-27 18:00 | NUR ---
RN NOTES PATIENT HAD 2 EPISODES OF EMESIS. REPORTED TO WESLEY MCKEON. ORDERS GIVEN FOR ZOFRAN 4MG IV Q6H PRN. WILL CARRY OUT.
[2017-03-27] MEDS ORDERED: ONDANSETRON HCL/PF 4 MG/2 ML VIAL IV PRN (19:00)
--- NOTE | 2017-03-27 19:30 | NUR ---
RN CLOSING NOTES PATIENT RESTING COMFORTABLY IN BED. AOX4. DENIES PAIN. DENIES SOB AND CP. CONDITION IMPROVED DURING SHIFT. RESPIRATIONS IMPROVED, EVEN AND UNLABORED. NO ACUTE DISTRESS. BED LOCKED IN THE LOWEST POSITION WITH SIDE RAIL UP X2. CALL LIGHT WITHIN REACH. ALL NEEDS MET. ALL MEDS GIVEN APPROPRIATE. WILL ENDORSE TO NIGHT RN FOR LOVE.
--- NOTE | 2017-03-27 19:40 | NUR ---
MS RN OPENING NOTES RECEIVED PT ALERT,AWAKE,VERBALLY RESPONSIVE,ON O2 VIA N/C AT 2L/MIN,NO SOB, NO APPARENT DISTRESS NOTED.DENIES ANY PAIN OR DISCOMFORT AT THIS TIME. IV SITE INTACT,PATENT.CALL LIGHT WITHIN REACH.KEPT CLEAN AND COMFORTABLE,ATTENDED ALL NEEDS. WILL CONTINUE TO MONITOR ACCORDINGLY.
[2017-03-27 20:00] VITALS: BP 118/59
[2017-03-27] MEDS ORDERED: ENOXAPARIN SODIUM 30 MG/0.3 ML DISP.SYRIN SQ SCH (21:00)
[2017-03-27 22:00] VITALS: BP 100/60
[2017-03-27] MEDS ORDERED: ATORVASTATIN 40 MG TABLET PO SCH (22:00)
[2017-03-27] MEDS ORDERED: TAMSULOSIN 0.4 MG CAP.SR.24H PO SCH (22:00)
[2017-03-27] MEDS ORDERED: INSULIN DETEMIR 100 UNIT/ML CARTRIDGE SQ SCH (22:00)
[2017-03-27] MEDS ORDERED: GABAPENTIN 300 MG CAPSULE PO SCH (22:00)
[2017-03-28] MEDS: BLOOD SUGAR DIAGNOSTIC 1 EACH STRIP VI SCH (06:28)
[2017-03-28] MEDS: INSULIN REGULAR, HUMAN 100 UNIT/ML 3 ML VIAL SQ PRN (06:30)
[2017-03-28 06:54] LABS: BASOPHILS % (AUTO) 0.4 % (0.0-2.0); EOSINOPHILS # (AUTO) 0.3 /CMM (0.0-0.7); EOSINOPHILS % (AUTO) 3.5 % (0.0-6.0); HEMATOCRIT 28 % (39-51); HEMOGLOBIN 9.5 g/dL (13.5-17.5); LYMPHOCYTES # (AUTO) 1.6 /CMM (0.8-4.8); LYMPHOCYTES % (AUTO) 19.6 % (20.0-44.0); MEAN CORPUSCULAR HEMOGLOBIN 29 PG (26.0-33.0); MEAN CORPUSCULAR HGB CONC 34 g/dl (31.0-36.0); MEAN CORPUSCULAR VOLUME 87 fL (80-96); MONOCYTES # (AUTO) 0.7 /CMM (0.1-1.30); MONOCYTES % (AUTO) 8.5 % (2.0-12.0); NEUTROPHILS # (AUTO) 5.4 /CMM (1.8-8.9); PLATELET COUNT (AUTO) 184 /CMM (150-450); RED BLOOD CELL COUNT(AUTO) 3.25 MIL/uL (4.5-6.0)
--- NOTE | 2017-03-28 06:55 | NUR ---
MS RN CLOSING NOTES PT IN BED AWAKE,ALERT,VERBALLY RESPONSIVE,ON O2 VIA N/C AT 2L/MIN, NIO SOB,NO APPARENT DISTRESS NOTED. IV SITE INTACT,PATENT,CALL LIGHT WITHIN REACH. ATTENDED ALL NEEDS.WILL CONTINUE TO MONITOR ACCORDINGLY
[2017-03-28 07:18] LABS: ALANINE AMINOTRANSFERASE 8 U/L (12-78); ALBUMIN 3.3 g/dL (3.4-5.0); ALKALINE PHOSPHATASE 66 U/L (46-116); ASPARTATE AMINOTRANSFERASE 10 U/L (15-37); B-TYPE NATRIURETIC PEPTIDE 8466 PG/ML (0-125); BILIRUBIN,TOTAL 0.6 mg/dL (0.2-1.0); CALCIUM, SERUM 8.8 mg/dL (8.5-10.1); CARBON DIOXIDE 29 mmol/L (21-32); CHLORIDE 106 mmol/L (98-107); CREATININE 2.3 mg/dL (0.6-1.3); GLUCOSE 129 mg/dL (74-106); MAGNESIUM 2.1 mg/dL (1.8-2.4); PHOSPHORUS 3.3 mg/dL (2.5-4.9); POTASSIUM 3.7 mmol/L (3.5-5.1); SODIUM SERUM 145 mmol/L (136-145); TOTAL PROTEIN, SERUM 7.1 g/dL (6.4-8.2); UREA NITROGEN, BLOOD 40 mg/dL (7-18)
[2017-03-28 07:19] LABS: CHOLESTEROL 121 mg/dL (<200); CREATINE KINASE, TOTAL 55 U/L (39-308); HDL CHOLESTEROL 27 mg/dL (40-60); LDL 74 mg/dL (0-99); TRIGLYCERIDES 112 mg/dL (30-150)
--- NOTE | 2017-03-28 07:20 | NUR ---
RN OPENING NOTES RECEIVED PATIENT RESTING COMFORTABLY IN BED. AOX4. DENIES PAIN. DENIES SOB AND CP. . RESPIRATIONS APPEAR EVEN AND UNLABORED. NO ACUTE DISTRESS. IV ACCESS IN THE LEFT AC 20 G PATENT AND INTACT. BED LOCKED IN THE LOWEST POSITION WITH SIDE RAIL UP X2. CALL LIGHT WITHIN REACH. WILL CONTINUE TO MONITOR, ASSESS AND EDUCATE PATIENT THROUGHOUT SHIFT.
[2017-03-28 07:24] LABS: TROPONIN I 0.036 ng/mL (0.00-0.056)
[2017-03-28 08:00] VITALS: BP 125/74
[2017-03-28] MEDS: CALCITRIOL 0.25 MCG CAPSULE PO SCH (08:42)
[2017-03-28] MEDS: FINASTERIDE (5 MG) 5 MG TABLET PO SCH (08:42)
[2017-03-28] MEDS: PANTOPRAZOLE 40 MG TABLET.DR PO SCH (08:42)
[2017-03-28] MEDS: FERROUS SULFATE (325 MG) 325 MG/TAB TABLET PO SCH (08:42)
[2017-03-28 08:43] VITALS: BP 125/74
[2017-03-28] MEDS: TICAGRELOR 90 MG PO SCH (08:43)
[2017-03-28] MEDS: CARVEDILOL 12.5 MG TABLET PO SCH (08:43)
[2017-03-28] MEDS: ISOSORBIDE MONONITRATE (30MG) 30 MG TAB.SR.24H PO SCH (08:43)
--- NOTE | 2017-03-28 09:50 | NUR ---
RN NOTES PATEINT REFUSED IMDUR. AMBULATED WELL SATURATING ADEQUATELY AT 96-97% ON RA AMBULATION.
--- NOTE | 2017-03-28 12:17 | NUR ---
EXPERT MEDICAL WRITER NOTES PATIENT VERBALIZED UNDERSTANDING OF DISCHARGE. PATEINT DISCHARGED IN STABLE CONDITION. NO ACUTE DISTRESS. RESPIRATIONS EVEN AND UNLABORED. DENIES CP AND SOB.ALL BELONGINGS ACCOUNTED FOR. AOX4. EXITCARE PROVIDED. EDUCATION ACKNOWLEDGED AND UNDERSTOOD. ALL NEEDS MET ALL MEDS GIVEN APPROPRIATE. IN THE EVENT OF AN EMERGENCY PATIENT TO RETURN TO THE ER. CONTINUE HOME MEDICATIONS. F/U WITH PCP AND INFECTIOUS DISEASE TECHNICIAN 1-2 WEEKS.
== END 2017-03-28 12:15 | disposition home or self-care (01) | DRG 143 ==
LOC: ER 21:59 → TELE 03-27 00:43 → MED 03-27 11:11
PROVIDERS: ADMIT Internal Medicine; ATTEND Internal Medicine
DX: J80 Acute respiratory distress syndrome (principal); N17.0 Acute kidney failure with tubular necrosis; I50.43 Acute on chronic combined systolic (congestive) and diastolic (congestive) heart failure; N18.4 Chronic kidney disease, stage 4 (severe); D68.59 Other primary thrombophilia; I42.9 Cardiomyopathy, unspecified; E11.22 Type 2 diabetes mellitus with diabetic chronic kidney disease; J90 Pleural effusion, not elsewhere classified; Z99.81 Dependence on supplemental oxygen; I13.0 Hypertensive heart and chronic kidney disease with heart failure and stage 1 through stage 4 chronic kidney disease, or unspecified chronic kidney disease; J44.9 Chronic obstructive pulmonary disease, unspecified; D63.8 Anemia in other chronic diseases classified elsewhere; I25.10 Atherosclerotic heart disease of native coronary artery without angina pectoris; E78.5 Hyperlipidemia, unspecified; N40.0 Benign prostatic hyperplasia without lower urinary tract symptoms; Z79.899 Other long term (current) drug therapy; Z95.5 Presence of coronary angioplasty implant and graft; Z82.49 Family history of ischemic heart disease and other diseases of the circulatory system; Z88.1 Allergy status to other antibiotic agents; Z88.8 Allergy status to other drugs, medicaments and biological substances; Z79.4 Long term (current) use of insulin; E11.9 Type 2 diabetes mellitus without complications; K29.70 Gastritis, unspecified, without bleeding; K21.9 Gastro-esophageal reflux disease without esophagitis; J98.11 Atelectasis; E66.9 Obesity, unspecified; E87.6 Hypokalemia; Z68.27 Body mass index [BMI] 27.0-27.9, adult; E44.1 Mild protein-calorie malnutrition
CPT/HCPCS: 36415; 36600; 71045-TC; 80048-TC; 80053-TC; 80061-TC; 80076-TC; 82272-TC; 82306; 82550-TC; 82728-TC; 82962-TC; 83540-TC; 83605-TC; 83735-TC; 83880; 84100-TC; 84439-TC; 84443-TC; 84484-TC; 85025-TC; 85730-TC; 87040-TC; 87081-TC; 93307-TC; A4606; J1650; J1815; J1940; J2405; Z7610